=== PATIENT | female | born 1965 | race Caucasian/White ===

== ENCOUNTER 2017-02-02 19:02 | Emergency (ER) | payer OTHER ==
[2017-02-02 19:03] VITALS: BMI 31.3
[2017-02-02 19:39] VITALS: BP 102/69; PULSE 70; RESP 20; TEMP 98.4; O2SAT 99
[2017-02-02 20:43] LABS: RBC URINE < 1 /hpf (0-3); TRANSITIONAL EPITHIAL < 1 /hpf (0-3); URINE BACTERIA RARE (<OCC); URINE BILIRUBIN NEGATIVE (NEGATIVE); URINE BLOOD NEGATIVE (NEGATIVE); URINE COLOR Straw (YELLOW); URINE GLUCOSE (UA) NORMAL (Normal); URINE KETONE NEGATIVE (NEGATIVE); URINE LEUKOCYTE ESTERASE NEG Leu/uL (Negative); URINE PROTEIN NEGATIVE (NEGATIVE); URINE UROBILINOGEN NORMAL mg/dL (0.2-1.0); WBC URINE < 1 /hpf (0-5)
--- NOTE | 2017-02-02 20:52 | C.PDOC ---
History Of Present Illness 51 y/o female presents to ED with complaints of dysuria and suprapubic abdominal pain radiating to back for 3 days. The patient reports that she was taking "cranberry UTI medications" with onlyy mild relief. Patient denies fever , vomiting, vaginal bleeding, chest pain, sob or any other complaints at this time. Time Seen by Provider: 02/02/17 19:55 Chief Complaint (Nursing): Back Pain History Per: Patient History/Exam Limitations: no limitations Onset/Duration Of Symptoms: Days Current Symptoms Are (Timing): Still Present Quality Of Discomfort: "Pain" Associated Symptoms: denies: Incontinence, New Weakness, New Numbness Exacerbating Factor(s): Nothing Past Medical History Reviewed: Historical Data, Nursing Documentation, Vital Signs Vital Signs: Last Vital Signs Temp 98.4 F 02/02/17 19:38 Pulse 70 02/02/17 19:38 Resp 20 02/02/17 19:38 BP 102/69 02/02/17 19:38 Pulse Ox 99 02/02/17 22:01 - Medical History PMH: Hypothyroidism Surgical History: Cholecystectomy, Endoscopy - [facility] Procedures URETHRAL DILATION (09/14/13) Family History: States: No Known Family Hx - Social History Hx Tobacco Use: No Hx Alcohol Use: No Hx Substance Use: No - Immunization History Hx Tetanus Toxoid Vaccination: No Hx Influenza Vaccination: No Hx Pneumococcal Vaccination: No Review Of Systems Except As Marked, All Systems Reviewed And Found Negative. Constitutional: Negative for: Fever, Chills Cardiovascular: Negative for: Chest Pain Respiratory: Negative for: Shortness of Breath Gastrointestinal: Positive for: Abdominal Pain. Negative for: Nausea, Vomiting Genitourinary: Positive for: Dysuria. Negative for: Hematuria Musculoskeletal: Negative for: Back Pain Skin: Negative for: Rash Physical Exam - Physical Exam Appears: Non-toxic, No Acute Distress Skin: Normal Color, Warm, No Rash Head: Atraumatic, Normacephalic Eye(s): bilateral: Normal Inspection Oral Mucosa: Moist Neck: Normal ROM, Supple Chest: Symmetrical Cardiovascular: Rhythm Regular, No Friction Rub, No Murmur Respiratory: Normal Breath Sounds, No Rales, No Rhonchi, No Wheezing Gastrointestinal/Abdominal: Bowel Sounds (active), Soft, Tenderness (mild suprapubic ), No Guarding, No Rebound, Other Back: Normal Inspection, No CVA Tenderness Extremity: Normal ROM Neurological/Psych: Oriented x3, Normal Speech, Normal Cognition, Normal Motor, Normal Sensation Gait: Steady ED Course And Treatment O2 Sat by Pulse Oximetry: 99 (RA) Pulse Ox Interpretation: Normal Medical Decision Making Medical Decision Making: UA is negative but will treat the dysuia and send a urine culture. Disposition - Disposition Referrals: [facility] at [facility] [Outside] Disposition: HOME/ ROUTINE Disposition Time: 21:58 Condition: GOOD Additional Instructions: Follow up with the medical doctor/clinic within 1-2 days. return if worsened. Prescriptions: Ciprofloxacin [Cipro] 1 tab PO BID #14 tab Ibuprofen [Motrin] 1 tab PO TID PRN #30 tab PRN Reason: Pain Phenazopyridine HCl [Pyridium] 200 mg PO TID #7 tablet Instructions: Urinary Tract Infection in Women (ED) Forms: [employer] (Zimbabwean) Print Language: CITIZEN OF [place] - Clinical Impression Clinical Impression: Urinary tract infection - PA / SOLAR ENERGY TECHNICIAN / Resident Statement MD/DO has reviewed & agrees with the documentation as recorded. - Scribe Statement The provider has reviewed the documentation as recorded by the Nicolás Leos All medical record entries made by the Nicolás were at my direction and personally dictated by me. I have reviewed the chart and agree that the record accurately reflects my personal performance of the history, physical exam, medical decision making, and the department course for this patient. I have also personally directed, reviewed, and agree with the discharge instructions and disposition.
== END 2017-02-02 22:06 | disposition home or self-care (01) ==
LOC: C.ER 19:02
DX: N39.0 Urinary tract infection, site not specified (principal)

== ENCOUNTER 2017-05-05 08:45 | Emergency (ER) | payer OTHER ==
[2017-05-05 08:45] VITALS: BMI 31.1
[2017-05-05 08:55] VITALS: RESP 18
[2017-05-05] MEDS ORDERED: Lactated Ringer's 1,000 ML IV ONE (09:34)
[2017-05-05] MEDS ORDERED: Lactated Ringer's 1,000 ML ONE (09:45)
[2017-05-05 10:04] LABS: EOS # 0.3 K/uL (0.0-0.7); LYMPH # 1.5 K/uL (1.0-4.3); MONO # 0.5 K/uL (0.0-0.8)
[2017-05-05 10:13] LABS: BASO % 0.6 % (0.0-2.0); EOS % 3.4 % (0.0-4.0); HEMATOCRIT 41.5 % (34.0-47.0); LYMPH % 19.1 % (20.0-40.0); MEAN CELL VOLUME 89.5 fL (81.0-99.0); MEAN CORPUSCULAR HEMOGLOBIN 30.3 pg (27.0-31.0); MEAN CORPUSCULAR HGB CONC 33.9 g/dL (33.0-37.0); MEAN PLATELET VOLUME 10.3 fL (7.2-11.7); MONO % 5.8 % (0.0-10.0); RED CELL DISTRIBUTION WIDTH 13.1 % (11.5-14.5)
[2017-05-05 10:14] LABS: ALB/GLOB RATIO 1.2 (1.0-2.1); ALKALINE PHOSPHATASE 73 U/L (38-126); ALT/SGPT 62 U/L (9-52); AST/SGOT 30 U/L (14-36); BILIRUBIN,TOTAL 0.9 mg/dL (0.2-1.3); BLOOD UREA NITROGEN 7 mg/dL (7-17); CALCIUM 8.6 mg/dl (8.6-10.4); CARBON DIOXIDE 28 mmol/L (22-30); CHLORIDE 102 mmol/L (98-107); GFR AFRICAN-AMERICAN > 60; GLUCOSE,RANDOM 101 mg/dL (65-105); POTASSIUM 3.8 mmol/L (3.6-5.2); SODIUM 139 mmol/L (132-148); TOTAL PROTEIN 7.2 g/dL (6.3-8.3)
[2017-05-05 10:36] LABS: URINE BILIRUBIN NEGATIVE (NEGATIVE); URINE BLOOD 3+ (NEGATIVE); URINE COLOR Yellow (YELLOW); URINE GLUCOSE (UA) NORMAL (Normal); URINE KETONE NEGATIVE (NEGATIVE); URINE LEUKOCYTE ESTERASE 2+ Leu/uL (Negative); URINE PROTEIN NEGATIVE (NEGATIVE); URINE UROBILINOGEN NORMAL mg/dL (0.2-1.0); WBC URINE 64 /hpf (0-5)
[2017-05-05 10:38] LABS: RBC URINE 7 /hpf (0-3)
[2017-05-05 10:39] LABS: URINE BACTERIA MANY (<OCC)
[2017-05-05] MEDS ORDERED: cefTRIAXone IV 1 gm in Dextros 50 ML IV ONE (10:40)
--- NOTE | 2017-05-05 10:53 | C.PDOC ---
History Of Present Illness 52 y/o female, with PMHx of frequent recurrent UTI, bladder mesh, presents to ED for evaluation of dysuria, urinary frequency, back pain, and nausea for the last 2 days. Notes having similar symptoms 8 months ago, was diagnosed with UTI , and treated with PO antibiotics with resolution. Denies vomiting, abdominal pain, or fever. Time Seen by Provider: 05/05/17 09:21 Chief Complaint (Nursing): Female Genitourinary History Per: Patient History/Exam Limitations: no limitations Onset/Duration Of Symptoms: Days Current Symptoms Are (Timing): Still Present Quality Of Discomfort: "Pain" Associated Symptoms: Nausea, Back Pain, Urinary Symptoms Alleviating Factors: None Recent travel outside of the [place]: No Additional History Per: Patient, Prior Records Past Medical History Reviewed: Historical Data, Nursing Documentation, Vital Signs Vital Signs: Last Vital Signs Temp 97.5 F L 05/05/17 08:50 Pulse 74 05/05/17 08:50 Resp 18 05/05/17 08:50 BP 101/66 05/05/17 08:50 Pulse Ox 98 05/05/17 11:01 - Medical History PMH: Hypothyroidism Denies: Chronic Kidney Disease Surgical History: Cholecystectomy, Endoscopy - [facility] Procedures URETHRAL DILATION (09/14/13) Family History: States: Unknown Family Hx - Social History Hx Tobacco Use: No Hx Alcohol Use: No Hx Substance Use: No - Immunization History Hx Tetanus Toxoid Vaccination: No Hx Influenza Vaccination: No Hx Pneumococcal Vaccination: No Review Of Systems Except As Marked, All Systems Reviewed And Found Negative. Constitutional: Negative for: Fever, Chills Cardiovascular: Negative for: Chest Pain Respiratory: Negative for: Shortness of Breath Gastrointestinal: Positive for: Nausea. Negative for: Vomiting, Abdominal Pain , Diarrhea Genitourinary: Positive for: Dysuria, Frequency. Negative for: Incontinence, Hematuria, Vaginal Discharge, Vaginal Bleeding Musculoskeletal: Positive for: Back Pain Neurological: Negative for: Weakness, Numbness Physical Exam - Physical Exam Appears: Non-toxic, No Acute Distress Skin: Normal Color, Warm, Dry Head: Atraumatic, Normacephalic Eye(s): bilateral: Normal Inspection, EOMI Oral Mucosa: Moist Neck: Normal ROM, Supple Chest: Symmetrical Cardiovascular: Rhythm Regular, No Murmur Respiratory: Normal Breath Sounds, No Rales, No Rhonchi, No Wheezing Gastrointestinal/Abdominal: Soft, No Tenderness Back: CVA Tenderness, No Vertebral Tenderness, Paraspinal Tenderness (left paralumbar) Extremity: Normal ROM Neurological/Psych: Oriented x3, Normal Speech ED Course And Treatment - Laboratory Results Result Diagrams: 05/05/17 09:53 05/05/17 09:53 O2 Sat by Pulse Oximetry: 98 Pulse Ox Interpretation: Normal Progress Note: Blood work, UA ordered and reviewed. Patient was given Toradol, Rocephine, and Pyridium. On re-evaluation, pt is tolerating PO. Pain improved. Remains afebrile. Previous culutures reviewed, which show growth of klebsiella which is sensitive to cipro. Patient is being discharged home with instructions to follow up with PMD in 1-2 days for further evaluation. Return to ED if symptoms persist or worsen. Disposition - Disposition Disposition: HOME/ ROUTINE Disposition Time: 11:27 Condition: STABLE Additional Instructions: Vaya a mathews mdico o la clnica en 1-3 coleman sin falta, para mas evaluacin. [place] los medicamentos job indicado. Volver a la devon de emergencia en cualquier momento si los sntomas persisten o empeoran. Prescriptions: Ciprofloxacin/Ciprofloxa HCl [Ciprofloxacin] 500 mg PO BID #14 tab Phenazopyridine HCl [Pyridium] 100 mg PO TID #6 tablet Instructions: Acute Pyelonephritis (ED) Forms: [employer] (Cook Islander) Print Language: TAMAZIGHT - Clinical Impression Clinical Impression: Pyelonephritis - PA / MARKET RESEARCH SENIOR PROJECT MANAGER / Resident Statement MD/DO has reviewed & agrees with the documentation as recorded. - Scribe Statement The provider has reviewed the documentation as recorded by the Nicolás Herzog All medical record entries made by the Nicolás were at my direction and personally dictated by me. I have reviewed the chart and agree that the record accurately reflects my personal performance of the history, physical exam, medical decision making, and the department course for this patient. I have also personally directed, reviewed, and agree with the discharge instructions and disposition.
[2017-05-05] MEDS ORDERED: cefTRIAXone IV 1 gm in Dextros 50 ML IVPB ONE (12:06)
[2017-05-05 12:59] VITALS: BP 112/72; PULSE 69; TEMP 97.7; O2SAT 95
== END 2017-05-05 12:59 | disposition home or self-care (01) ==
LOC: C.ER 08:45
DX: N12 Tubulo-interstitial nephritis, not specified as acute or chronic (principal)
CPT/HCPCS: 80053; 81001; 83690; 84703; 85025; 87086; 87181; 96361; 96365; 96372; 99285; J0696; J1885; J7120

== ENCOUNTER 2017-07-02 08:49 | Emergency (ER) | payer OTHER ==
[2017-07-02 08:49] VITALS: BMI 31.1
[2017-07-02 08:59] VITALS: BP 104/70; PULSE 77; RESP 16; TEMP 97.8; O2SAT 96
[2017-07-02 09:23] LABS: SQUAMOUS EPITHIAL < 1 /hpf (0-5); URINE BACTERIA OCC (<OCC); URINE BILIRUBIN NEGATIVE (NEGATIVE); URINE BLOOD 2+ (NEGATIVE); URINE CLARITY Clear (Clear); URINE COLOR Straw (YELLOW); URINE GLUCOSE (UA) NORMAL (Normal); URINE LEUKOCYTE ESTERASE 3+ Leu/uL (Negative); URINE NITRATE NEGATIVE (NEGATIVE); URINE PROTEIN NEGATIVE (NEGATIVE); URINE UROBILINOGEN NORMAL mg/dL (0.2-1.0)
[2017-07-02] MEDS ORDERED: cefTRIAXone 1 gm in Water For Injection 2.1 ML IM ONE (09:44)
[2017-07-02] MEDS ORDERED: LIDOCAINE HYDROCHLORIDE IM ONE (10:00)
[2017-07-02] MEDS ORDERED: CEFTRIAXONE IM ONE (10:00)
--- NOTE | 2017-07-02 10:04 | C.PDOC ---
History Of Present Illness 52 y/o female presents to ED with complaints of dysuria and foul smell with associated back pain 5/10 since yesterday. Patient reports recurrent UTIs, prior culture at [facility] was resistant to E.coli. Patient denies fever, chills, nausea, vomiting or any other complaints at this gato. Time Seen by Provider: 07/02/17 09:22 Chief Complaint (Nursing): Female Genitourinary History Per: Patient History/Exam Limitations: no limitations Onset/Duration Of Symptoms: Days Current Symptoms Are (Timing): Still Present Past Medical History Reviewed: Historical Data, Nursing Documentation, Vital Signs Vital Signs: Last Vital Signs Temp 97.8 F 07/02/17 08:54 Pulse 77 07/02/17 08:54 Resp 16 07/02/17 08:54 BP 104/70 07/02/17 08:54 Pulse Ox 96 07/02/17 10:31 - Medical History PMH: Hypothyroidism Surgical History: Cholecystectomy, Endoscopy - [facility] Procedures URETHRAL DILATION (09/14/13) Family History: States: No Known Family Hx - Social History Hx Tobacco Use: No Hx Alcohol Use: No Hx Substance Use: No - Immunization History Hx Tetanus Toxoid Vaccination: No Hx Influenza Vaccination: No Hx Pneumococcal Vaccination: No Review Of Systems Constitutional: Negative for: Fever, Chills Gastrointestinal: Negative for: Nausea, Vomiting Genitourinary: Positive for: Dysuria. Negative for: Hematuria Musculoskeletal: Positive for: Back Pain Skin: Negative for: Rash Neurological: Negative for: Weakness Physical Exam - Physical Exam Appears: Non-toxic, No Acute Distress Skin: Warm, Dry, No Rash Head: Atraumatic, Normacephalic Oral Mucosa: Moist Neck: Normal ROM, Supple Cardiovascular: Rhythm Regular Respiratory: Normal Breath Sounds, No Rales, No Rhonchi, No Wheezing Gastrointestinal/Abdominal: Soft, No Tenderness, No Guarding, No Rebound Back: No CVA Tenderness Extremity: Normal ROM, Capillary Refill (<2 seconds) Neurological/Psych: Oriented x3 ED Course And Treatment O2 Sat by Pulse Oximetry: 96 (RA) Pulse Ox Interpretation: Normal Medical Decision Making Medical Decision Making: Prior culture resistant to most PO medication Patient was given IM Rocephin Discussed with clinic for tomorrow and next patient to be given repeat dose of Rocephin IM Disposition Counseled Patient/Family Regarding: Studies Performed, Diagnosis, Need For Followup - Disposition Referrals: [facility] at [facility] [Outside] Disposition: HOME/ ROUTINE Disposition Time: 10:00 Condition: STABLE Additional Instructions: You have a resistant bacteria in your urine. We gave you an injection of Rocephin today. Please go to the clinic and make an appointment for tommorow and the next day. You will need at least 2 more injections. Usted tiene melania bacteria resistente en mathews orina. Te dimos melania inyeccin de Rocephin hoy. Por favor vaya a la clnica y margy melania sabiha para maana y al da siguiente. Necesitar al menos 2 inyecciones ms. Instructions: Urinary Tract Infection in Women (ED) Forms: [facility] (Slovenian) - POA Present On Arrival: None - Clinical Impression Clinical Impression: Acute urinary tract infection - Scribe Statement The provider has reviewed the documentation as recorded by the Scribe Lorna Leos All medical record entries made by the Scribe were at my direction and personally dictated by me. I have reviewed the chart and agree that the record accurately reflects my personal performance of the history, physical exam, medical decision making, and the department course for this patient. I have also personally directed, reviewed, and agree with the discharge instructions and disposition.
== END 2017-07-02 10:23 | disposition home or self-care (01) ==
LOC: C.ER 08:49
DX: N39.0 Urinary tract infection, site not specified (principal); E03.9 Hypothyroidism, unspecified
CPT/HCPCS: 81001; 87086; 87181; 96372; 99284; J0696

== ENCOUNTER 2017-09-21 08:43 | Emergency (ER) | payer OTHER ==
[2017-09-21 08:43] VITALS: BMI 30.2
[2017-09-21 09:52] LABS: SQUAMOUS EPITHIAL < 1 /hpf (0-5); URINE BACTERIA RARE (<OCC); URINE BILIRUBIN NEGATIVE (NEGATIVE); URINE BLOOD 1+ (NEGATIVE); URINE CLARITY Clear (Clear); URINE COLOR Straw (YELLOW); URINE GLUCOSE (UA) NORMAL (Normal); URINE LEUKOCYTE ESTERASE 2+ Leu/uL (Negative); URINE PROTEIN NEGATIVE (NEGATIVE); URINE UROBILINOGEN NORMAL mg/dL (0.2-1.0)
[2017-09-21] MEDS ORDERED: cefTRIAXone 1 gm in Water For Injection 2.1 ML IM STA (10:06)
--- NOTE | 2017-09-21 10:10 | C.PDOC ---
History Of Present Illness Patient is a 52 year old female with history of recurrent UTI secondary to pelvic sling surgery 10 years ago who presents to the ED with complaint of two days of dysuria. Patient states pain and burning with urination began on . She reports hematuria that began yesterday on 09/20/17. Patient reports last UTI in June required 3 rocephin shots. Patient denies nausea, vomiting diarrhea, fever, chills. She reports pain in left side of back that wraps to groin. (aMrcus ALVAREZ,Cathryn Espinoza) History Per: Patient Severity: Moderate Pain Scale Rating Of: 6 Quality Of Discomfort: Sharp, Burning Time Seen by Provider: 09/21/17 09:11 Chief Complaint (Nursing): Female Genitourinary Past Medical History - Medical History PMH: Hypothyroidism Denies: Chronic Kidney Disease Surgical History: Cholecystectomy, Endoscopy Family History: States: Unknown Family Hx - Social History Hx Tobacco Use: No Hx Alcohol Use: No Hx Substance Use: No - Immunization History Hx Tetanus Toxoid Vaccination: No Hx Influenza Vaccination: No Hx Pneumococcal Vaccination: No Vital Signs: Last Vital Signs Temp 98.4 F 09/21/17 10:31 Pulse 84 09/21/17 10:31 Resp 18 09/21/17 10:31 BP 110/68 09/21/17 10:31 Pulse Ox 98 09/21/17 10:31 - [facility] Procedures URETHRAL DILATION (09/14/13) Review Of Systems Constitutional: Negative for: Fever, Chills Eyes: Negative for: Vision Change ENT: Negative for: Ear Pain Cardiovascular: Negative for: Chest Pain, Palpitations Respiratory: Negative for: Cough, Shortness of Breath Genitourinary: Positive for: Dysuria, Hematuria, Pelvic Pain Musculoskeletal: Positive for: Back Pain. Negative for: Neck Pain Neurological: Negative for: Weakness Physical Exam - Physical Exam Appears: Non-toxic, No Acute Distress Skin: Normal Color, Warm, Dry Head: Atraumatic, Normacephalic Eye(s): bilateral: EOMI Nose: Normal Oral Mucosa: Moist Tongue: Normal Appearing Lips: Normal Appearing Neck: Normal, Normal ROM Chest: Symmetrical Cardiovascular: Rhythm Regular Gastrointestinal/Abdominal: Bowel Sounds, Soft, No Tenderness Back: CVA Tenderness (left) Extremity: No Pedal Edema Neurological/Psych: Oriented x3, Normal Speech ED Course And Treatment O2 Sat by Pulse Oximetry: 97 Progress Note: UA positive for blood, WBC, LE. Will give rocephin in ED. Patient will need to follow up in clinic for results of urine culture. Disposition - Disposition Disposition Time: 10:26 - Disposition Referrals: [facility] at [facility] [Outside] Disposition: HOME/ ROUTINE Condition: STABLE Additional Instructions: FOLLOW UP IN THE MEDICAL CLINIC IN 1-2 DAYS FOR URINE CULTURE, FURTHER TREATMENT USE MEDICATIONS DIRECTED RETURN TO EMERGENCY ROOM IF SYMPTOMS WORSEN SEGUIMIENTO EN LA CLNICA MDICA EN 1-2 DENNISON PARA LA CULTIVO DE ORINA, TRATAMIENTO ADICIONAL USE MEDICAMENTOS SEGN LO INDICADO REGRESE AL MARI DE EMERGENCIA SI LOS SNTOMAS EMPEORAN Prescriptions: Nitrofurantoin Macrocrystals [Macrobid] 1 cap PO BID #14 cap Phenazopyridine [Pyridium] 100 mg PO TID #9 tab Instructions: Urinary Tract Infection, Adult (DC) Forms: [employer] (Luxembourger) Print Language: LUXEMBOURGISH - Clinical Impression Clinical Impression: Acute urinary tract infection - PA / BAR FINISH OPERATOR / Resident Statement KIANA has reviewed & agrees with the documentation as recorded. / has examined the patient and agrees with the treatment plan.
[2017-09-21 10:32] VITALS: BP 110/68; PULSE 84; RESP 18; TEMP 98.4; O2SAT 98
== END 2017-09-21 10:50 | disposition home or self-care (01) ==
LOC: C.ER 08:43
DX: N39.0 Urinary tract infection, site not specified (principal)
CPT/HCPCS: 81001; 87086; 87181; 96372; 99284; J0696

== ENCOUNTER 2018-05-25 23:02 | Emergency (ER) | payer SELFPAY ==
[2018-05-25 23:02] VITALS: BMI 30.2
[2018-05-25 23:15] VITALS: BP 127/80; PULSE 76; RESP 20; TEMP 97.5; O2SAT 100
[2018-05-25 23:30] LABS: SQUAMOUS EPITHIAL < 1 /hpf (0-5); URINE BACTERIA OCC (<OCC); URINE BILIRUBIN NEGATIVE (NEGATIVE); URINE BLOOD 2+ (NEGATIVE); URINE COLOR Straw (YELLOW); URINE GLUCOSE (UA) NORMAL (Normal); URINE LEUKOCYTE ESTERASE 3+ Leu/uL (Negative); URINE PROTEIN NEGATIVE (NEGATIVE); URINE UROBILINOGEN NORMAL mg/dL (0.2-1.0)
[2018-05-25 23:35] LABS: URINE CLARITY Hazy (Clear)
--- NOTE | 2018-05-25 23:44 | C.PDOC ---
History Of Present Illness 53 year old female presents to the ER with a complaint of dysuria and frequency since yesterday with suprapubic pain that began today. Patient believes she has a UTI, has Hx of similar in the past. Denies fever or flank pain. Time Seen by Provider: 05/25/18 23:15 Chief Complaint (Nursing): Female Genitourinary History Per: Patient History/Exam Limitations: no limitations Onset/Duration Of Symptoms: Days Current Symptoms Are (Timing): Still Present Quality Of Discomfort: Unable To Describe Associated Symptoms: Urinary Symptoms (Dysuria, Frequency). denies: Fever, Other (Flank pain) Alleviating Factors: None Recent travel outside of the [place]: No Abnormal Vaginal Bleeding: No Past Medical History Reviewed: Historical Data, Nursing Documentation, Vital Signs Vital Signs: Last Vital Signs Temp 97.5 F L 05/25/18 23:13 Pulse 76 05/25/18 23:13 Resp 20 05/25/18 23:13 BP 127/80 05/25/18 23:13 Pulse Ox 100 05/25/18 23:13 - Medical History PMH: Hypothyroidism Denies: Chronic Kidney Disease Surgical History: Cholecystectomy, Endoscopy - [facility] Procedures URETHRAL DILATION (09/14/13) Family History: States: Unknown Family Hx - Social History Hx Tobacco Use: No Hx Alcohol Use: No Hx Substance Use: No - Immunization History Hx Tetanus Toxoid Vaccination: No Hx Influenza Vaccination: No Hx Pneumococcal Vaccination: No Review Of Systems Constitutional: Negative for: Fever Gastrointestinal: Negative for: Abdominal Pain Genitourinary: Positive for: Dysuria, Frequency Musculoskeletal: Negative for: Other (Flank pain) Physical Exam - Physical Exam Appears: Non-toxic Skin: Normal Color, Warm, Dry Head: Atraumatic, Normacephalic Oral Mucosa: Moist Chest: Symmetrical, No Tenderness Cardiovascular: Rhythm Regular Respiratory: Normal Breath Sounds, No Rales, No Rhonchi, No Wheezing Gastrointestinal/Abdominal: Soft, No Tenderness Back: No CVA Tenderness Neurological/Psych: Oriented x3, Normal Speech ED Course And Treatment O2 Sat by Pulse Oximetry: 100 (Room air) Pulse Ox Interpretation: Normal Medical Decision Making Medical Decision Making: Urinalysis ordered, results were positive for UTI. Patient is resting comfortably in the ER in no acute distress, vitals are stable, will started on antibiotics and discharge home with instructions to follow up with PMD. Disposition Counseled Patient/Family Regarding: Diagnosis, Need For Followup, Rx Given - Disposition Referrals: Leti Payne MD [Staff Provider] - Disposition: HOME/ ROUTINE Disposition Time: 23:42 Condition: GOOD Additional Instructions: Tienes infeccion de orina Ginette antibiticos dos veces al da ayo melania semana. Traci luis agua y sigue con tu mdico. Prescriptions: Cephalexin [cephalexin] 500 mg PO Q12 #13 cap Instructions: Urinary Tract Infection, Adult (DC) Forms: [employer] (Maltese) Print Language: GREEK - POA Present On Arrival: None - Clinical Impression Clinical Impression: Urinary tract infection - PA / DETAIL SUPERVISOR / Resident Statement MD/DO has reviewed & agrees with the documentation as recorded. - Scribe Statement The provider has reviewed the documentation as recorded by the Scribe Johnathan Lee All medical record entries made by the Scribe were at my direction and personally dictated by me. I have reviewed the chart and agree that the record accurately reflects my personal performance of the history, physical exam, medical decision making, and the department course for this patient. I have also personally directed, reviewed, and agree with the discharge instructions and disposition.
== END 2018-05-25 23:50 | disposition home or self-care (01) ==
LOC: C.ER 23:02
DX: N39.0 Urinary tract infection, site not specified (principal)

== ENCOUNTER 2018-06-05 10:08 | Emergency (ER) | payer OTHER ==
[2018-06-05 10:08] VITALS: BMI 30.2
[2018-06-05 10:49] VITALS: BP 115/74; PULSE 62; RESP 20; TEMP 98.2; O2SAT 98
[2018-06-05 10:58] LABS: SQUAMOUS EPITHIAL < 1 /hpf (0-5); URINE BACTERIA OCC (<OCC); URINE BILIRUBIN NEGATIVE (NEGATIVE); URINE BLOOD 1+ (NEGATIVE); URINE CLARITY Clear (Clear); URINE COLOR Yellow (YELLOW); URINE GLUCOSE (UA) NORMAL (Normal); URINE LEUKOCYTE ESTERASE TRACE Leu/uL (Negative); URINE PROTEIN NEGATIVE (NEGATIVE); URINE UROBILINOGEN NORMAL mg/dL (0.2-1.0)
[2018-06-05] MEDS ORDERED: Tmp-Smz 800 mg-160 mg DS Tab PO STA (11:03)
--- NOTE | 2018-06-05 11:06 | C.PDOC ---
History Of Present Illness 53 year old female presents to the ED for evaluation of dysuria and suprapubic abdominal pain for 3-4 days. The patient reports taking Cipro with no improvement. Denies fever, chills, diarrhea, vomiting, chest pain, shortness of breath, vaginal bleeding, vaginal discharge, and any other associated symptoms. Time Seen by Provider: 06/05/18 10:26 Chief Complaint (Nursing): Female Genitourinary History Per: Patient History/Exam Limitations: no limitations Onset/Duration Of Symptoms: Days Current Symptoms Are (Timing): Still Present Past Medical History Reviewed: Historical Data, Nursing Documentation, Vital Signs Vital Signs: Last Vital Signs Temp 98.2 F 06/05/18 10:16 Pulse 62 06/05/18 10:16 Resp 20 06/05/18 10:16 BP 115/74 06/05/18 10:16 Pulse Ox 98 06/05/18 10:16 - Medical History PMH: Hypothyroidism Denies: Chronic Kidney Disease Surgical History: Cholecystectomy, Endoscopy - [facility] Procedures URETHRAL DILATION (09/14/13) Family History: States: Unknown Family Hx - Social History Hx Tobacco Use: No Hx Alcohol Use: No Hx Substance Use: No - Immunization History Hx Tetanus Toxoid Vaccination: No Hx Influenza Vaccination: No Hx Pneumococcal Vaccination: No Review Of Systems Except As Marked, All Systems Reviewed And Found Negative. Genitourinary: Positive for: Dysuria Physical Exam - Physical Exam Appears: Non-toxic, No Acute Distress Skin: Normal Color, Warm, Dry Head: Atraumatic, Normacephalic Eye(s): bilateral: Normal Inspection, PERRL, EOMI Nose: Normal Oral Mucosa: Moist Neck: Supple Chest: Symmetrical Cardiovascular: Rhythm Regular, No Murmur Respiratory: Normal Breath Sounds, No Rales, No Rhonchi, No Wheezing Gastrointestinal/Abdominal: Normal Exam, Soft, Tenderness (suprapubic.) Extremity: Bilateral: Atraumatic, Normal Color And Temperature, Normal ROM Neurological/Psych: Oriented x3, Normal Speech ED Course And Treatment O2 Sat by Pulse Oximetry: 98 (RA) Pulse Ox Interpretation: Normal Medical Decision Making Medical Decision Making: Assessment: UTI Plan: -Motrin -Macrobid -Bactrim -Pyridium -Urine culture. -HCG Urine -Urinalysis Progress/Update: Switched antibiotics to macrobid. Patient stable for discharge home. Advised patient to follow up with the Clinic within 2 days. Prescribed Pyridium and Macrobid. Disposition Counseled Patient/Family Regarding: Studies Performed, Diagnosis, Need For Followup, Rx Given - Disposition Referrals: [facility] at [facility] [Outside] Disposition: HOME/ ROUTINE Disposition Time: 11:04 Condition: STABLE Additional Instructions: follow up with medical clinic within 2 days call to make an appointment take medications as prescribed return to ER if symptoms worsens or progress Prescriptions: Nitrofurantoin Macrocrystals [Macrobid] 100 mg PO BID #14 cap Phenazopyridine HCl [Pyridium] 200 mg PO TID #6 tablet Instructions: Urinary Tract Infection, Adult (DC) Forms: Gen Discharge Inst [employer] (Panamanian) Print Language: GERMAN - Clinical Impression Clinical Impression: Dysuria, Urinary tract infection - Scribe Statement The provider has reviewed the documentation as recorded by the Scribe (Heather Craft) Provider Attestation: All medical record entries made by the Scribe were at my direction and personally dictated by me. I have reviewed the chart and agree that the record accurately reflects my personal performance of the history, physical exam, medical decision making, and the department course for this patient. I have also personally directed, reviewed, and agree with the discharge instructions and disposition.
== END 2018-06-05 11:21 | disposition home or self-care (01) ==
LOC: C.ER 10:08
DX: R30.0 Dysuria (principal); N39.0 Urinary tract infection, site not specified

== ENCOUNTER 2018-08-16 09:10 | Outpatient (CLI) | payer SELFPAY, OTHER | END 2018-08-16 09:11 | disposition home or self-care (01) | LOC: C.MAMMO 09:10 | DX: N63.0 Unspecified lump in unspecified breast (principal) ==